=== PATIENT | female | born 1950 | race Caucasian/White ===

== ENCOUNTER → 2017-06-19 | Outpatient (CLI) | payer OTHER ==
[~2017-06-19] MED LIST: ALVESCO6.1 INH; BENADRYL25 MG PO; CALCIUM 600 +1 EAC1 PO; CHROMIUM PIC1000 MCG PO; CINNAMON PLUS1 EACH PO; CLEARLAX PO; CO Q-10200 MG PO; GABAPENTIN100 MG PO; GINGER500 MG PO; IBUPROFEN 200200 M1 PO; L-GLUTAMINE PO; LEVOTHYROXIN0.112 M1 PO; MAGNESIUM250 M1 PO; MULTIVITAMINS PO; PREDNISOLONE 5 M5 MG PO; PRILOSEC40 MG PO; PROBIOTIC1 EAC1 PO; QVAR INH; SUDOGEST SINUS1 EACH PO; TENORMIN25 MG PO; TURMERIC500 M1 PO; TYLENOL325 MG PO; VENTOLIN HFA 1818 GM INH; VITAMINC500 PO
== END ==
LOC: MRI 06:30
DX: M25.461 Effusion, right knee (principal)

== ENCOUNTER → 2017-07-28 | Outpatient (CLI) | payer OTHER | LOC: RAD 07:12 | DX: M25.461 Effusion, right knee (principal) ==

== ENCOUNTER → 2018-01-28 | Outpatient (CLI) | payer OTHER | LOC: RAD 07:26 | DX: Z12.31 Encounter for screening mammogram for malignant neoplasm of breast (principal) ==

== ENCOUNTER → 2018-02-02 | Outpatient (CLI) | payer OTHER | LOC: BC 01:19 | DX: N63.20 Unspecified lump in the left breast, unspecified quadrant (principal); R92.2 Inconclusive mammogram ==

== ENCOUNTER 2018-09-05 10:38 | Emergency (ER) | payer OTHER ==
[~2018-09-05] VITALS: Ht 167.6 cm; Wt 69.4 kg
[2018-09-05 10:42] VITALS: BP 116/67
[2018-09-05] MEDS ORDERED: ONDANSETRON HCL4 M2 PO (11:19)
[2018-09-05] MEDS ORDERED: NORCO 5-325 TA1 EAC1 PO (11:19)
== END 2018-09-05 11:49 | disposition home or self-care (01) ==
LOC: ER 10:38
DX: S83.8X1A Sprain of other specified parts of right knee, initial encounter (principal); R11.0 Nausea; Z87.891 Personal history of nicotine dependence; Z88.0 Allergy status to penicillin; Z88.2 Allergy status to sulfonamides; W01.0XXA Fall on same level from slipping, tripping and stumbling without subsequent striking against object, initial encounter; Y93.89 Activity, other specified; Y92.89 Other specified places as the place of occurrence of the external cause; Y99.8 Other external cause status

== ENCOUNTER → 2018-10-20 | Outpatient (CLI) | payer OTHER ==
[~2018-10-20] MED LIST changes: +NORCO 5-325 TA1 EAC1 PO; +ONDANSETRON HCL4 M2 PO
== END ==
LOC: CAT 10:00
DX: Z13.6 Encounter for screening for cardiovascular disorders (principal); E78.00 Pure hypercholesterolemia, unspecified; I25.10 Atherosclerotic heart disease of native coronary artery without angina pectoris

== ENCOUNTER → 2018-11-10 | Outpatient (CLI) | payer OTHER | LOC: ULTRA 12:18 | DX: R10.2 Pelvic and perineal pain (principal) ==

== ENCOUNTER → 2019-01-28 | Outpatient (CLI) | payer OTHER | LOC: RAD 08:21 → BC 11:28 → RAD 14:26 | DX: Z12.31 Encounter for screening mammogram for malignant neoplasm of breast (principal) ==

== ENCOUNTER → 2019-05-06 | Outpatient (CLI) | payer OTHER ==
[~2019-05-06] VITALS: Ht 167.6 cm; Wt 70.3 kg
[~2019-05-06] MED LIST changes: +CALCIUM CITRAT200 MG PO; +L-LYSINE1000 M1 PO; +LEVO-T100 MCG PO; +QVAR REDIHALE10.6 G1 INH; +TURMERIC500 M2 PO; +VITAMIN D3250 MC1 PO; +ZYRTEC10 MG PO
[2019-05-06 12:52] LABS: URINE BILIRUBIN NEGATIVE (Negative); URINE BLOOD NEGATIVE (Negative); URINE CLARITY CLEAR; URINE COLOR YELLOW; URINE GLUCOSE-RANDOM* NEGATIVE (Negative); URINE KETONES NEGATIVE (Negative); URINE NITRITE-REFLEX NEGATIVE (Negative); URINE PROTEIN (DIPSTICK) NEGATIVE (Negative); URINE SPECIFIC GRAVITY 1.015 (1.005-1.035); URINE UROBILINOGEN 0.2 E.U./dl (0.2-1.0)
[2019-05-06 13:06] LABS: URINE LEUKOCYTES-REFLEX 1+ (Negative)
[2019-05-06 13:07] LABS: ALBUMIN 4.1 g/dL (3.4-5.0); CALCIUM 10.1 mg/dL (8.5-10.1); CREATININE 0.8 mg/dL (0.6-1.0); POTASSIUM 4.2 mmol/L (3.5-5.1)
[2019-05-06 13:08] LABS: PROTIME 10.4 Seconds (9.3-11.4)
[2019-05-06 13:12] LABS: HEMATOCRIT 45.4 % (37.0-47.0); HEMOGLOBIN 15.1 gm/dL (12.0-15.0); MCH 31.8 pg (26.0-34.0); MCHC 33.3 g/dL (28.0-37.0); MCV 95.5 fL (80.0-100.0); RBC 4.75 mil/uL (4.20-5.00); RDW 12.7 % (10.5-14.5); WBC 7.3 thou/uL (4.0-11.0)
[2019-05-06 13:17] LABS: BACTERIA-REFLEX 1-9 Few /HPF (None Seen); CASTS None Seen /LPF (None Seen); CRYSTALS None Seen /LPF (None Seen); SQUAMOUS 0-3 Few /LPF (0-3); URINE RBC 0-2 Rare /HPF (0-2); URINE WBC-REFLEX 0-5 Rare /HPF (0-5)
--- NOTE | 2019-05-28 11:48 | EKG ---
[facility] [place] [address] ELECTROCARDIOGRAM REPORT Name: ABIMBOLA ADNERSON Room #: REG [facility]#: [id number] Admission: 05/06/19 Attend Phys: Bob Sanz MD Discharge: Date of : 52 Report #: [id number] THIS REPORT FOR: cc: Iftikhar Smith MD, Rene P. MD Lundgren, Craig H. MD [facility] ~ THIS REPORT FOR: //name// [facility] Test Date: 2019-05-06 Test Time: 12:47:01 Pat Name: ABIMBOLA ANDERSON Department: Room: Gender: F Siebel Architect: SHAW SINGH : 1950 Requested By: Bob Sanz Order Number: [id number] MD: Mykel Shabazz Measurements Intervals [place] Rate: 97 P: 65 KS: 166 QRS: -23 QRSD: 109 T: 88 QT: 377 QTc: 479 Interpretive Statements Sinus rhythm Poor R wave progression Nonspecific intraventricular conduction delay Nonspecific ST segment abnormality No previous ECG available for comparison Electronically Signed On 05-07-2019 8:17:35 CDT by Mykel Shabzaz [email or web address] <ELECTRONICALLY SIGNED> By: Mykel Shabazz MD, [facility] 05/07/19 0817 1247 1247 Mykel Shabazz MD, [facility] /EPI
== END ==
LOC: PAC 12:25 → OR 05-12 19:14 → EDSTATUS 05-18 12:13 → OR 05-18 12:25
PROVIDERS: Orthopaedic Surgery Sports Medicine
DX: Z47.1 Aftercare following joint replacement surgery (principal); Z96.651 Presence of right artificial knee joint

== ENCOUNTER → 2019-05-13 | Outpatient (CLI) | payer OTHER | LOC: SJCVCIMAG 08:44 | DX: Z01.818 Encounter for other preprocedural examination (principal); R94.31 Abnormal electrocardiogram [ECG] [EKG]; E78.5 Hyperlipidemia, unspecified ==

== ENCOUNTER 2019-07-21 06:13 | Day surgery (SDC) | payer OTHER ==
[2019-07-14 09:01] LABS: HEMATOCRIT 45.6 % (37.0-47.0); HEMOGLOBIN 15.7 gm/dL (12.0-15.0); MCH 32.6 pg (26.0-34.0); MCHC 34.4 g/dL (28.0-37.0); MCV 94.8 fL (80.0-100.0); RBC 4.81 mil/uL (4.20-5.00); RDW 13.2 % (10.5-14.5); WBC 5.7 thou/uL (4.0-11.0)
[2019-07-14 09:04] LABS: URINE BILIRUBIN NEGATIVE (Negative); URINE BLOOD NEGATIVE (Negative); URINE CLARITY CLEAR; URINE COLOR YELLOW; URINE GLUCOSE-RANDOM* NEGATIVE (Negative); URINE KETONES NEGATIVE (Negative); URINE NITRITE-REFLEX NEGATIVE (Negative); URINE PROTEIN (DIPSTICK) NEGATIVE (Negative); URINE SPECIFIC GRAVITY 1.025 (1.005-1.035); URINE UROBILINOGEN 0.2 E.U./dl (0.2-1.0)
[2019-07-14 09:05] LABS: URINE LEUKOCYTES-REFLEX 1+ (Negative)
[2019-07-14 09:11] LABS: CREATININE 0.7 mg/dL (0.6-1.0); POTASSIUM 4.6 mmol/L (3.5-5.1)
[2019-07-14 09:15] LABS: CASTS None Seen /LPF (None Seen); MUCUS 0-3 Light strn/LPF (None Seen); PROTIME 9.9 Seconds (9.3-11.4); SQUAMOUS 0-3 Few /LPF (0-3)
[2019-07-14 09:16] LABS: BACTERIA-REFLEX None Seen /HPF (None Seen); CRYSTALS None Seen /LPF (None Seen); URINE RBC None Seen /HPF (0-2); URINE WBC-REFLEX 0-5 Rare /HPF (0-5)
[~2019-07-21] VITALS: Ht 167.6 cm; Wt 68.0 kg
[~2019-07-21 06:13] MED LIST changes: +NAPROXEN DELAY500 M1 PO
[2019-07-21 08:00] VITALS: BP 112/53
[2019-07-21 15:00] VITALS: BP 118/63
--- NOTE | 2019-07-21 18:34 | NUR ---
ASSUMED CARE OF THE PT AT 0700. PT IS STANDBY ASSIST WITH GAIT BELT AND WALKER, PIVOTS TO BSC AND BED. R FOREARM DRY AND INTACT. PT N/V UNDER CONTROL. PTS PAIN CONTROLLED BY PAIN MEDS SEE EMAR. FALL PRECAUTIONS IN PLACE, BED IN THE LOWEST POSITION AND CALL LIGHT IS WITHIN REACH. WILL CONTINUE TO MONITOR THE PT.
--- NOTE | 2019-07-21 18:47 | NUR ---
PATIENT ADMITTED FROM OR, WITH RIGHT NAVIO TOTAL KNEE REPLACEMENT, BERNY DRESSING IN PLACE, THIGH HIGH EVELYNE HOSE, SCD'S AND POLAR PACK IN PLACE. PATIENT C/O NAUSEA UPON ARRIVING TO THE UNIT, ZOFRAN 4MG IV GIVEN. PATIENT C/O PAIN WITH RIGHT KNEE. OXYCODOE 1 TABLET GIVEN. PT WALKED WITH THE PATIENT TODAY. REGULAR DIET ORDERED. ADMISSION DONE, EXCEPT CARE PLAN. WILL REPORT OFF TO THE NIGHT NURSE/MANUELITO. WILL CONTINUE TO MONITOR.
[2019-07-21 20:30] VITALS: BP 109/67
[2019-07-22] VITALS: BP 104/53
--- NOTE | 2019-07-22 04:54 | NUR ---
ASSESSMENT: PT REMAIN ALERT AND ORIENT TIMES FOUR. DENIES PAIN CURRENTLY ON RIGHT LE. POLAR PK AND EVELYNE HOSES IN PLACE. UP TO BSC WITH SBA. SLEPT MOST OF THE SHIFT. LOW GRADE TEMP OF 99.7, TYLENOL GIVEN WITH GOOD RELIEF. TOLERATING PO INTAKE. PECO DRESSING INTACT, POLER RAMA INTACT. STEADY GAIT TO BSC. GOOD PROGRESS TOWARDS DC GOALS, WILL CONTINUE TO MONITOR.
[2019-07-22 04:55] VITALS: BP 104/53
[2019-07-22 06:07] LABS: HEMATOCRIT 39.4 % (37.0-47.0); HEMOGLOBIN 13.2 gm/dL (12.0-15.0); MCH 32.2 pg (26.0-34.0); MCHC 33.5 g/dL (28.0-37.0); MCV 96.2 fL (80.0-100.0); RBC 4.1 mil/uL (4.20-5.00); RDW 12.8 % (10.5-14.5); WBC 9.5 thou/uL (4.0-11.0)
[2019-07-22 06:23] LABS: CALCIUM 8.6 mg/dL (8.5-10.1); CREATININE 0.7 mg/dL (0.6-1.0); POTASSIUM 4.1 mmol/L (3.5-5.1)
[2019-07-22 08:30] VITALS: BP 96/55
--- NOTE | 2019-07-22 08:59 | NUR ---
ASSESSMENT: CM REVIEWED CHART AND SPOKE WITH PATIENT. PT IS ALERT AND ORIENTED X4. PT IS S/P RIGHT TKA. PT REPORTS SHE LIVES IN A HOUSE WITH ABOUT 2 STEPS TO ENTER. PT REPORTS ONCE INSIDE SHE HAS ABOUT 7-8 STEPS TO HER BEDROOM WITH HANDRAILS. PT REPORTS THAT SHE NORMALLY AMBULATES INDEPENDENTLY AND IS INDEPENDENT WITH ADLS. PT REPORTS HAVING A WALKER AT HOME SHE CAN USE AND ALSO REPORTS HAVING A SHOWER CHAIR. PT REPORTS SHE ALREADY HAS HER OUTPATIENT THERAPY SCHEDULED AT [facility] AND IS JUST WAITING ON THE SCRIPT FROM THE PHYSICIAN. PT REPORTS NO NEEDS FROM CM.
--- NOTE | 2019-07-22 13:03 | O ---
[address] [address] OPERATIVE REPORT Name: ABIMBOLA ANDERSON Room #: 440-P [facility]#: [id number] Admission: 07/21/19 Attend Phys: Bob Sanz MD Discharge: Date of : 52 Report #: [id number] THIS REPORT FOR: cc: Iftikhar Smith MD, Rene P. MD McCabe,Bob Hutson MD ~ CC: Bob Smith DATE OF SERVICE: 07/21/2019 SERVICE: Orthopedics. FACILITY: [place]. SURGEON: Bob Sanz MD END POLISHER: Zaynab Rajan NP. PREOPERATIVE DIAGNOSES: 1. Right knee pain. 2. Right knee severe osteoarthritis. 3. Right knee instability. POSTOPERATIVE DIAGNOSES: 1. Right knee pain. 2. Right knee severe osteoarthritis. 3. Right knee instability. PROCEDURES: 1. Right total knee arthroplasty. 2. Computer navigated robotic-assisted arthroplasty. COMPLICATIONS: None. DRAINS: None. SPECIMENS: None. ANESTHESIA: General. FINDINGS: 1. Well-balanced knee with appropriately sized implants on visual inspection. 2. [employer]hew Journey II size 5 Oxinium femoral component with size 4 tibial component, 11 mm constrained tibial insert and a 32 mm patellar button. 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 She had specifically a posterior lateral wear pattern and was having some associated instability related to this and was having lifestyle limiting pain secondary to osteoarthritis. She had [id number] arthritic changes with osteophytes and sclerosis and had failed rest, activity modification, physical therapy, bracing, injections, oral medicines and modalities. She ultimately wished to move forward with definitive surgical treatment. Risks, benefits, alternatives, and indication for surgery were discussed with her in detail. Risks include, but not limited to pain, bleeding, infection, injury to nerves or blood vessels, persistent pain despite surgical intervention, failure of the procedure, need for further surgery, stiffness as well as complications related to anesthesia such as stroke, heart attack, pulmonary complications, thromboembolic disease and . Despite these risks, she wished to proceed. PROCEDURE IN DETAIL: After right lower extremity was correctly identified in the preoperative holding area as the operative extremity, the patient underwent placement of regional nerve block by Anesthesia. She was then taken to the operating room where general anesthesia was induced without complication. She was padded appropriately. Prophylactic antibiotics were administered with clindamycin at appropriate time. Tourniquet was applied to right leg. Right lower extremity was then prepped and draped in standard sterile fashion. Timeout procedure performed. Esmarch was used. Tourniquet was inflated to 250 mmHg. Total tourniquet time was 100 minutes going to the intraoperative change in the femoral component sizing. Standard anterior approach was made to the knee and full thickness skin flaps were developed and medial parapatellar arthrotomy was performed and then the standard total knee exposure was performed with excision of the cruciates, osteophyte and anterior horns of the menisci. The checkpoints and the tibial and femoral half pins were placed in standard fashion and then a [employer] computer navigation system was then calibrated and utilized for alignment and sizing. I initially sized for 6 femoral component and this fit her nicely and have better balancing and then proceeded with the distal femoral cut and then the 5-in-1 cutting block returning to implant and then the tibial cut as well with the trials in. It was clear that the size 6 was too large, both the medial and lateral and there was some over sizing as well and so we removed the trial and then placed the adjustable Journey II 5-in-1 cutting block for the size [address] and then dialed it anteriorly with a 3 mm resection amount with 1.5 mm resected anteriorly and 1.5 resected posteriorly for better balance. This improved the anterior cut position relative to the anterior cortex and then also provided some additional flexion gap balancing as it was a little bit looser in flexion with a [address] After this was completed, the instruments were removed. We had placed the gap assessment block in flexion and extension and were happy with it after the initial cut and removed this and then I injected 30 mL of the periarticular injection cocktail into the posterior capsule. The [address] [address] OPERATIVE REPORT Name: JENNIFER ANDERSONDANAE Correa Room #: 440-P REG [facility]#: [id number] Admission: 07/21/19 Attend Phys: Bob Sanz MD Discharge: Date of : 52 Report #: [id number] final preparations were made for the tibia and the femur after we sized the tibia once more and assessed the stability. We used the Navio with the trials in place to confirm balancing and good range of motion with religious of her valgus deformity, which preoperatively was 30 degrees and was corrected to 0 and improvement of her flexion contracture to essentially 0. The trials were removed and then after the patella had been prepared as well and then the knee was copiously irrigated with pulse lavage and prepared for implant cementation. The implants were then cemented into position in a typical fashion and the 11 constrained trial was used in this as well. We had selected based on the trialing and the knee was held in extension while the cement cured and the patella was allowed to cure as well as excess cement was removed, tourniquet was let down. Hemostasis was achieved and the remainder of the periarticular injection cocktail was infiltrated in the anterior medial and lateral soft tissues while the cement cured. At this point, the wound and the knee were thoroughly irrigated again, excess cement was removed. We ensured that there were no residual posterior osteophytes or structures in the posterior knee that needed to be removed and then trialed with the insert trials and ultimately confirmed the selection of the 11 constrained and this gave her better stability in the deep flexion position and was nicely balanced in flexion and extension. The knee was taken into extension. The trial was removed. The final tibial insert was snapped into position and the knee was finally irrigated one last time and then the arthrotomy was closed over a gram of vancomycin powder with 0 Vicryl suture in [id number] fashion. The skin was closed with 2-0 Vicryl followed by running subcuticular 3-0 Monocryl. Sterile dressing was applied followed by a compression wrap, PolarCare and stocking. The patient was awakened from anesthesia and taken to recovery room in stable condition. There were no complications and all counts were recorded as correct. <ELECTRONICALLY SIGNED> By: Bob Sanz MD 07/22/19 1303 1038 1114 Bob Sanz MD /nt
[2019-07-22 14:09] VITALS: BP 96/55
--- NOTE | 2019-07-22 19:50 | NUR ---
PT A&OX4, VSS, PAIN IN RIGHT KNEE. PATIENT WORKED WITH PT. PATIENT USED POLAR PACK, EVELYNE HOSE AND SCDS ON. PATIENT DISCHARGED HOME. NO SIGNS OF DISTRESS. ALL BELONGINGS WITH PATIENT. IV REMOVED. PULSE FELT IN LEG, DRESSING C/D/I, SKIN COLOR APPROPRIATE, CAP LESS THAN THREE SECS.
== END 2019-07-22 16:57 | disposition home or self-care (01) ==
LOC: TBA 06:13 → OR 06:13 → 4S 15:27 → OR 07-22 16:57
PROVIDERS: Orthopaedic Surgery Sports Medicine
DX: M25.561 Pain in right knee (principal); M17.11 Unilateral primary osteoarthritis, right knee; M25.361 Other instability, right knee; E03.9 Hypothyroidism, unspecified; J45.909 Unspecified asthma, uncomplicated; K21.9 Gastro-esophageal reflux disease without esophagitis; Z98.890 Other specified postprocedural states; Z79.899 Other long term (current) drug therapy; Z87.891 Personal history of nicotine dependence; Z88.0 Allergy status to penicillin; Z88.2 Allergy status to sulfonamides; Z88.8 Allergy status to other drugs, medicaments and biological substances
CPT/HCPCS: 10102; 50010; 50101; 50415; 50954; 51130; 51225; 51320; 52001; 52282; 53000; 53078; 54118; 55372; 56527; 56528; 57095; 57103; 57110; 57127; 57180; 62110; 62900; 64042; 70005

== ENCOUNTER → 2019-11-16 | Outpatient (CLI) | payer OTHER ==
[2019-11-16 09:23] LABS: ABSOLUTE NEUTROPHILS 2.1 thou/uL (1.4-8.2); BASOPHILS 1.8 % (0.0-2.0); EOSINOPHILS 10.7 % (0.0-3.0); HEMOGLOBIN 15.1 gm/dL (12.0-15.0); LYMPHOCYTES 34.2 % (24.0-44.0); MCH 31.6 pg (26.0-34.0); MCHC 33.6 g/dL (28.0-37.0); MONOCYTES 8.5 % (1.0-8.0); PLATELET COUNT 284 thou/uL (150-400); POLYS 44.8 % (36.0-66.0); RBC 4.79 mil/uL (4.20-5.00); RDW 13.9 % (10.5-14.5); WBC 4.7 thou/uL (4.0-11.0)
[2019-11-16 09:41] LABS: ANION GAP 7 mmol/L (7-16); BUN 20 mg/dL (7-18); CALCIUM 9.2 mg/dL (8.5-10.1); CHLORIDE 104 mmol/L (98-107); CHOLESTEROL 265 mg/dL (<200); CO2 31 mmol/L (21-32); CREATININE 0.7 mg/dL (0.6-1.0); GLUCOSE 92 mg/dL (74-106); HDL CHOLESTEROL 86 mg/dL (>40); LDL CHOLESTEROL 166 mg/dL (<100); POTASSIUM 4.4 mmol/L (3.5-5.1); SGOT 13 U/L (15-37); SGPT 28 U/L (30-65); SODIUM 142 mmol/L (136-145); TC:HDL 3.1 Ratio (Not establshd); TOTAL BILIRUBIN 0.5 mg/dL (0.2-1.0); TOTAL PROTEIN 7.3 g/dL (6.4-8.2); TRIGLYCERIDE 67 mg/dL (<150); VLDL 13 mg/dL (<40)
== END ==
LOC: LABMALL 08:47
PROVIDERS: ATTEND Family Medicine
DX: Z00.00 Encounter for general adult medical examination without abnormal findings (principal); Z13.820 Encounter for screening for osteoporosis; E03.9 Hypothyroidism, unspecified

== ENCOUNTER → 2020-02-01 | Outpatient (CLI) | payer OTHER | LOC: BC 08:29 | PROVIDERS: ATTEND Family Medicine | DX: Z12.31 Encounter for screening mammogram for malignant neoplasm of breast (principal) ==

== ENCOUNTER → 2020-02-02 | Outpatient (CLI) | payer OTHER | LOC: LAB 07:42 | PROVIDERS: ATTEND Family Medicine | DX: Z20.828 Contact with and (suspected) exposure to other viral communicable diseases (principal) ==

== ENCOUNTER → 2020-07-14 | Outpatient (CLI) | payer OTHER ==
[2020-07-14 14:40] LABS: ABSOLUTE NEUTROPHILS 3.5 thou/uL (1.4-8.2); BASOPHILS 0.7 % (0.0-2.0); EOSINOPHILS 3.2 % (0.0-3.0); HEMATOCRIT 42.3 % (37.0-47.0); HEMOGLOBIN 14.4 gm/dL (12.0-15.0); MCH 32.6 pg (26.0-34.0); MCHC 34.1 g/dL (28.0-37.0); MCV 95.8 fL (80.0-100.0); MONOCYTES 6.5 % (1.0-8.0); PLATELET COUNT 287 thou/uL (150-400); POLYS 53.6 % (36.0-66.0); RBC 4.42 mil/uL (4.20-5.00); RDW 13.7 % (10.5-14.5); WBC 6.5 thou/uL (4.0-11.0)
[2020-07-14 14:58] LABS: CALCIUM 9.5 mg/dL (8.5-10.1); CREATININE 0.8 mg/dL (0.6-1.0); POTASSIUM 4.4 mmol/L (3.5-5.1); TOTAL BILIRUBIN 0.3 mg/dL (0.2-1.0); TOTAL PROTEIN 7.6 g/dL (6.4-8.2)
== END ==
LOC: LAB 14:04
PROVIDERS: ATTEND Family Medicine
DX: R53.83 Other fatigue (principal); E03.9 Hypothyroidism, unspecified

== ENCOUNTER → 2020-08-25 | Outpatient (CLI) | payer OTHER ==
[~2020-08-25] VITALS: Ht 165.1 cm; Wt 72.1 kg
[~2020-08-25] MED LIST changes: +MULTI VITAMIN1 EACH PO; +OMEPRAZOLE40 MG PO
--- NOTE | 2020-08-26 09:41 | P ---
[facility] [place] [address] PROCEDURE REPORT Name: ABIMBOLA ANDERSON Room #: REG [facility]#: [id number] Admission: 08/25/20 Attend Phys: Branden Larsen Discharge: Date of : 52 Report #: [id number] THIS REPORT FOR: cc: Iftikhar Smith MD, Rene P. MD McElhinney, Christian C. MD ~ cc: Iftikhar Smith MD DATE OF SERVICE: 08/25/2020 PROCEDURE PERFORMED: Colonoscopy with biopsies. HISTORY OF PRESENT ILLNESS: The patient is a 69-year-old female with a history of colon polyps and constipation. Five-year followup for history of polyps. Denies any symptoms other than constipation. No family history of colon cancer. DESCRIPTION OF PROCEDURE: The risks and benefits of the procedure were explained to the patient, those risks including but not limited to bleeding, perforation and the risk of sedation. She understood these risks and gave informed consent. Sedation was given using propofol per anesthesia. Next, a digital rectal exam was initially performed, which was normal. Next, using a standard Olympus colonoscope, the scope was placed in the patient's anus and advanced under direct vision to the cecum. The overall prep was good in most areas. It was fair in some areas. Multiple washings and aspirations were performed. Most areas were well visualized, but it was somewhat limited. The ascending, transverse, descending, and sigmoid colon were normal. In the rectum, there was a 4 mm sessile polyp. This was noted, removed with cold forceps, otherwise normal. On retroflexion, no abnormalities were noted. Scope was then withdrawn and the procedure terminated. The patient tolerated the procedure well. IMPRESSION: 1. Small rectal polyp. 2. Otherwise, normal colonoscopy. RECOMMENDATIONS: 1. Await biopsy results. 2. Repeat colonoscopy in 5 years. Thank you for allowing me to participate in her care. <ELECTRONICALLY SIGNED> By: Branden Smith MD 08/26/20 0941 0852 Branden Smith MD /nt
--- NOTE | 2020-08-28 18:06 | PATH ---
[facility] [address] [place] [address] PATHOLOGY RPT PROCEDURE Name: ABIMBOLA COLUNGA Room #: REG [facility] Payton.#: [id number] Admission: 08/25/20 Date of : 52 Discharge: Report #: [id number] Path Case #: [id number] [facility] Accession Number: [id number] . 01 Material submitted: . rectum - BIOPSY RECTAL POLYP . 01 Clinical history: . COLONOSCOPY HISTORY OF POLYPS . 02 Diagnosis: Polyp, rectal polyp, endoscopic biopsy: - Hyperplastic polyp. - Negative for dysplasia. . (IUV:mml; 08/28/2020) [facility] 08/28/2020 1518 Local . 02 Electronically signed: . Sera Cao MD, Pathologist NPI- [id number] . 01 Gross description: . The specimen is received in formalin, labeled "Abimbola Colunga, biopsy rectal polyp". Received is a segment of pale moran tissue measuring 0.2 cm in maximum dimensions. The specimen is submitted entirely in A1. (CAA; 08/27/2020) QAC/QAC 08/27/2020 1423 Local . 02 Pathologist provided ICD-10: K62.1 . 02 CPT . 966243 Specimen Comment: A courtesy copy of this report has been sent to [phone] Specimen Comment: [phone] Specimen Comment: Report sent to / DR MOJICA Performed at: [address] [facility], [place] [id number] MD Aram Costa MD Phone: [phone] Performed at: [address] [id number] MD Sera aCo MD Phone: [phone]
== END | disposition home or self-care (01) ==
LOC: GI 07:38
PROVIDERS: ATTEND Specialist
DX: K59.00 Constipation, unspecified (principal); K62.1 Rectal polyp; E03.9 Hypothyroidism, unspecified; K21.9 Gastro-esophageal reflux disease without esophagitis; J45.909 Unspecified asthma, uncomplicated; Z98.890 Other specified postprocedural states; Z86.010 Personal history of colon polyps; Z79.899 Other long term (current) drug therapy; Z96.651 Presence of right artificial knee joint; Z87.891 Personal history of nicotine dependence; Z88.0 Allergy status to penicillin; Z88.2 Allergy status to sulfonamides
CPT/HCPCS: 62110; 62900

== ENCOUNTER → 2020-10-20 | Outpatient (CLI) | payer OTHER ==
[2020-10-20 12:44] LABS: ABSOLUTE NEUTROPHILS 1.6 thou/uL (1.4-8.2); BASOPHILS 0.9 % (0.0-2.0); EOSINOPHILS 5.5 % (0.0-3.0); HEMATOCRIT 43.9 % (37.0-47.0); LYMPHOCYTES 42.2 % (24.0-44.0); MCH 32.7 pg (26.0-34.0); MCHC 34.3 g/dL (28.0-37.0); MCV 95.5 fL (80.0-100.0); MONOCYTES 14.5 % (1.0-8.0); PLATELET COUNT 237 thou/uL (150-400); POLYS 36.9 % (36.0-66.0); RDW 12.2 % (10.5-14.5); WBC 4.4 thou/uL (4.0-11.0)
[2020-10-20 12:58] LABS: ALBUMIN 3.6 g/dL (3.4-5.0); ANION GAP 7 mmol/L (7-16); BUN 15 mg/dL (7-18); CALCIUM 8.7 mg/dL (8.5-10.1); CHLORIDE 103 mmol/L (98-107); CHOLESTEROL 180 mg/dL (<200); CO2 32 mmol/L (21-32); CREATININE 0.6 mg/dL (0.6-1.0); GLUCOSE 67 mg/dL (74-106); HDL CHOLESTEROL 36 mg/dL (>40); LDL CHOLESTEROL 120 mg/dL (<100); POTASSIUM 3.4 mmol/L (3.5-5.1); SGOT 19 U/L (15-37); SGPT 31 U/L (30-65); SODIUM 142 mmol/L (136-145); TOTAL BILIRUBIN 0.3 mg/dL (0.2-1.0); TOTAL PROTEIN 7.1 g/dL (6.4-8.2); TRIGLYCERIDE 122 mg/dL (<150); VLDL 24 mg/dL (<40)
== END ==
LOC: LAB 08:01
PROVIDERS: ATTEND Family Medicine
DX: R53.83 Other fatigue (principal); E03.9 Hypothyroidism, unspecified; E78.00 Pure hypercholesterolemia, unspecified

== ENCOUNTER → 2021-02-02 | Outpatient (CLI) | payer OTHER | LOC: BC 09:28 | PROVIDERS: ATTEND Family Medicine | DX: Z12.31 Encounter for screening mammogram for malignant neoplasm of breast (principal) ==